=== PATIENT | male | born 1970 | race Two or more races ===

== ENCOUNTER 2017-02-06 11:35 | Emergency (ER) | payer OTHER ==
[~2017-02-06] VITALS: Ht 165.1 cm; Wt 68.0 kg
[2017-02-06 12:03] VITALS: BP 142/91
== END 2017-02-06 12:21 | disposition home or self-care (01) ==
LOC: ER 11:37
DX: M54.9 Dorsalgia, unspecified (principal); F41.9 Anxiety disorder, unspecified
CPT/HCPCS: 99281; A4606 ×2; Z7610 ×2; Z7502

== ENCOUNTER 2023-04-15 00:21 | Emergency (ER) | payer BC, OTHER ==
[~2023-04-15] VITALS: Ht 165.1 cm; Wt 68.0 kg
[2023-04-15 01:10] VITALS: TEMP 98.5
[2023-04-15 02:22] LABS: EOSINOPHILS # (AUTO) 0.2 K/uL (0.0-0.7); EOSINOPHILS % (AUTO) 5.2 % (0.0-6.0); HEMATOCRIT 48 % (39-51); HEMOGLOBIN 16.3 g/dL (13.5-17.5); LYMPHOCYTES # (AUTO) 1.2 K/uL (0.8-4.8); LYMPHOCYTES % (AUTO) 27.5 % (20.0-44.0); MEAN CORPUSCULAR HEMOGLOBIN 32 PG (26.0-33.0); MEAN CORPUSCULAR HGB CONC 34 g/dl (31.0-36.0); MEAN CORPUSCULAR VOLUME 94 fL (80-96); MONOCYTES # (AUTO) 0.3 K/uL (0.1-1.30); MONOCYTES % (AUTO) 6.3 % (2.0-12.0); NEUTROPHILS # (AUTO) 2.6 K/uL (1.8-8.9); PLATELET COUNT (AUTO) 185 K/uL (150-450); RED BLOOD CELL COUNT(AUTO) 5.13 MIL/uL (4.5-6.0); RED CELL DISTRIBUTION WIDTH 13.2 % (11.5-15.0); WHITE BLOOD COUNT (AUTO) 4.3 K/uL (4.3-11.0)
[2023-04-15 02:44] LABS: ALANINE AMINOTRANSFERASE 42 U/L (12-78); ALBUMIN 4.6 g/dL (3.4-5.0); ALKALINE PHOSPHATASE 69 U/L (46-116); ASPARTATE AMINOTRANSFERASE 16 U/L (15-37); BILIRUBIN,DIRECT 0.1 mg/dL (0.0-0.2); BILIRUBIN,TOTAL 0.5 mg/dL (0.2-1.0); CARBON DIOXIDE 28 mmol/L (21-32); CHLORIDE 104 mmol/L (98-107); CREATININE 1.2 mg/dL (0.6-1.3); GLUCOSE 107 mg/dL (74-106); POTASSIUM 4.1 mmol/L (3.5-5.1); SODIUM SERUM 142 mmol/L (136-145); UREA NITROGEN, BLOOD 18 mg/dL (7-18)
[2023-04-15] MEDS ORDERED: CYCL5TAB PO (03:35)
[2023-04-15 03:51] VITALS: BP 133/87; O2SAT 97
== END 2023-04-15 03:51 | disposition home or self-care (01) ==
LOC: ER 00:26
DX: R42 Dizziness and giddiness (principal); I10 Essential (primary) hypertension; M54.6 Pain in thoracic spine; E78.5 Hyperlipidemia, unspecified
CPT/HCPCS: 36415; 71045-TC; 80048-TC; 80076-TC; 84484-TC; 85025-TC